=== PATIENT | female | born 1960 | race Caucasian/White ===

== ENCOUNTER 2017-08-10 01:13 | Observation (INO) | payer OTHER ==
[~2017-08-10 01:13] MED LIST: PANT20 PO; RANI150T PO; ZOFR4TAB3 SL
[2017-08-10] MEDS ORDERED: SODIUM CHLORIDE 0.9% FLUSH 10 ML FLUSH IV FLUSH PRN (02:30)
[2017-08-10 04:00] VITALS: PULSE 60
[2017-08-10 04:34] VITALS: BP 128/72; PULSE 56; RESP 18; TEMP 98.1; O2SAT 95
[2017-08-10 05:21] LABS: CREATINE KINASE 49 U/L (26-192)
[2017-08-10] MEDS ORDERED: PANTOPRAZOLE SOD 40 MG DELAYED RELEASE TAB PO SCH (06:00)
[2017-08-10 07:31] VITALS: PULSE 57
[2017-08-10] MEDS ORDERED: SODIUM CHLORIDE 0.9% FLUSH 10 ML FLUSH IV FLUSH SCH (09:00)
[2017-08-10 11:01] VITALS: BP 130/71; PULSE 61; RESP 20; TEMP 97.8; O2SAT 98
[2017-08-10] MEDS ORDERED: ONDANSETRON HCL 4 MG/2 ML VIAL IV PUSH PRN (12:00)
[2017-08-10] MEDS ORDERED: NITROGLYCERIN 0.4 MG SL 25 TABS/BTL SL PRN (12:00)
[2017-08-10] MEDS ORDERED: ACETAMINOPHEN 500 MG CPLT PO PRN (12:00)
[2017-08-10 12:06] LABS: CREATINE KINASE 40 U/L (26-192)
--- NOTE | 2017-08-10 13:26 | HHI.HP ---
HPI Primary Care Physician Surjit Steele MD Chief Complaint Chest pain History of Present Illness 56 year old female present to the ER for further evaluation of chest discomfort and epigastric squeezing. Onset yesterday morning upon awakening. Location substernal with radiation to right side of jaw. Duration 10 minutes, pain eased up in jaw first, a few minutes chest pressure subsided. Epigastric discomfort described as squeezing. No associated symptoms of nausea, vomiting, diaphoresis , or shortness of breath. Endorses similar pain in the past of both substernal pain accompanied with or without right sided jaw pain for a couple of years. . Reports while at work last night she developed substernal chest tightness, no radiation, duration one hour, no associated symptoms, no known precipitating or relieving factors. Endorses history of gastritis, GERD, and hiatal hernia. Review of Systems General: No fatigue,weakness, fever, chills, recent illness, or change in appetite. Has been in her general state of health. HEENT: No MONTIEL, no nasal congestion or drainage, no dysphasia. CV: As stated above. No current chest pain or pressure. RESP: No SOB, cough, or sputum production. GI: History of hiatal hernia, gastritis, and GERD. No nausea, vomiting, bowel changes, pain, or distention. Follows with a GI specialist. Has taken protonix and zantac on a regular basis in the past. : No dysuria EXT: No lower leg edema, no paraesthesias MS: No discomfort or change in ROM NEURO: No difficulty with balance, LOC, motor/sensory deficits PSYCH: No anxiety, depression, or situational stress. SKIN: No rashes, no concerning lesions Past Family Social History Allergies: Coded Allergies: penicillin G (Unverified Allergy, Severe, 06/18/17) cefepime (Unverified Allergy, Unknown, 06/18/17) ceftaroline fosamil (Unverified Allergy, Unknown, 06/18/17) cephalexin (Unverified Allergy, Unknown, 06/18/17) ciprofloxacin (Unverified Allergy, Unknown, 06/18/17) iodine (Unverified Allergy, Unknown, 06/18/17) pentazocine (Unverified Allergy, Unknown, 06/18/17) potassium iodide (Unverified Allergy, Unknown, 06/18/17) povidone-iodine (Unverified Allergy, Unknown, 06/18/17) sodium iodide (Unverified Allergy, Unknown, 06/18/17) sodium iodide (Unverified Allergy, Unknown, 06/18/17) Past Medical History Gastritis, hiatal hernia, GERD Past Surgical History Right breast lumpectomy, appendectomy Reported Medications Reported Ranitidine (Ranitidine HCl) 150 Mg Tab 150 Mg PO DAILY Protonix (Pantoprazole Sodium) 20 Mg Tab 20 Mg PO DAILY Active Ordered Medications Current Medications Medications (Trade) Dose Ordered Sig/Rudy Route Start Time Stop Time Status Last Admin (NS Flush) 2 ml BID IV FLUSH 08/10/17 09:00 08/10/17 11:30 (NS Flush) 2 ml UNSCH PRN IV FLUSH 08/10/17 02:30 (Protonix) 40 mg DAILY@0600 PO 08/10/17 06:00 08/10/17 07:00 (Tylenol) 500 mg Q4H PRN PO 08/10/17 12:00 (Zofran Inj) 4 mg Q6H PRN IV PUSH 08/10/17 12:00 (Nitrostat Sl) 0.4 mg Q5M PRN SL 08/10/17 12:00 (Aspirin) 325 mg DAILY PO 08/11/17 09:00 Family History Father from [place] age 48. Mother lived into her 90s. No siblings with early onset cardiovascular disease. Social History No known coronary artery disease, diabetes, hypertension, or hyperlipidemia. Lifelong smoker. Currently smokes Vapor cigarettes reporting 6mg nicotine with each cigarettes. Denies any alcohol. Works in [email or web address] for [employer]. Reports an active lifestyle. Past cardiac testing No recent stress testing. Remote cardiac catheterization at age 37 and reports completely normal exam. Physical Exam Vital Signs Vital Signs Date Time Temp Pulse Resp B/P (MAP) Pulse Ox O2 Delivery O2 Flow Rate FiO2 08/10/17 11:01 97.8 61 20 130/71 (90) 98 08/10/17 07:31 57 08/10/17 04:34 98.1 56 18 128/72 (90) 95 08/10/17 04:00 60 Physical Exam GENERAL: Alert WN, WD, NAD, pleasant, female HEAD: NC, AT EYES: Sclera clear, conjunctiva without injection ENT: Mucous membranes pink and moist NECK: Supple, no masses, trachea midline CV: RRR, without murmur, rub, gallop, no JVD, S1-S2 no S3-S4. No carotid bruits. Nontender chest wall with palpation. RESP: Clear lungs throughout bilateral, no crackles, wheeze, rhonchi, symmetrical chest rise, nonlabored, able to speak in full sentences ABD: Soft, NT, ND, no masses, positive bowel tones EXT: Pulses +24, no dependent edema MS: Normal tone 4 extremities, nontender, no obvious deformities, full range of motion NEURO: CN II through CN XII grossly intact, motor strength 5/5, gait WNL PSYCH: A+O 3, pleasant affect, appropriate speech, appropriate mood and affect , insight and judgment SKIN: Normal turgor, normal texture, no lesions, no rashes, even hair distribution Laboratory Laboratory Tests Test 08/10/17 04:20 08/10/17 10:43 Total Creatine Kinase 49 40 Troponin I LESS THAN 0.02 LESS THAN 0.02 Imaging Chest x-ray completed in [facility]-interpreted by radiologist as no acute findings. Course EKG NSR, normal axis, no st t segment changes Caprini VTE Risk Assessment Caprini VTE Risk Assessment: No/Low Risk (score <= 1) Caprini Risk Assessment Model Point Value = 1 Point Value = 2 Point Value = 3 Point Value = 5 Age 41-60 Minor surgery BMI > 25 kg/m2 Swollen legs Varicose veins or History of unexplained or recurrent spontaneous Oral contraceptives or hormone replacement Sepsis (< 1 month) Serious lung disease, including pneumonia (< 1 month) Abnormal pulmonary function Acute myocardial infarction Congestive heart failure (< 1 month) History of inflammatory bowel disease Medical patient at bed rest Age 61-74 Arthroscopic surgery Major open surgery (> 45 min) Laparoscopic surgery (> 45 min) Malignancy Confined to bed (> 72 hours) Immobilizing plaster cast Central venous access Age >= 75 History of VTE Family history of VTE Factor V Leiden Prothrombin [id number] Lupus anticoagulant Anticardiolipin antibodies Elevated serum homocysteine Heparin-induced thrombocytopenia Other congenital or acquired thrombophilia Stroke (< 1 month) Elective arthroplasty Hip, pelvis, or leg fracture Acute spinal cord injury (< 1 month) Prophylaxis Regimen Total Risk Factor Score Risk Level Prophylaxis Regimen 0-1 Low Early ambulation 2 Moderate Order ONE of the following: *Sequential Compression Device (SCD) *Heparin 5000 units SQ BID 3-4 Higher Order ONE of the following medications: *Heparin 5000 units SQ TID *Enoxaparin/Lovenox 40 mg SQ daily (WT < 150 kg, CrCl > 30 mL/min) *Enoxaparin/Lovenox 30 mg SQ daily (WT < 150 kg, CrCl > 10-29 mL/min) *Enoxaparin/Lovenox 30 mg SQ BID (WT < 150 kg, CrCl > 30 mL/min) AND/OR *Sequential Compression Device (SCD) 5 or more Highest Order ONE of the following medications: *Heparin 5000 units SQ TID (Preferred with Epidurals) *Enoxaparin/Lovenox 40 mg SQ daily (WT < 150 kg, CrCl > 30 mL/min) *Enoxaparin/Lovenox 30 mg SQ daily (WT < 150 kg, CrCl > 10-29 mL/min) *Enoxaparin/Lovenox 30 mg SQ BID (WT < 150 kg, CrCl > 30 mL/min) AND *Sequential Compression Device (SCD) Assessment and Plan Assessment and Plan #1 Atypical chest pain-admitted to chest pain center. Ruled out with 3 sets of cardiac enzymes, EKGs, and monitored on telemetry overnight. Seen and evaluated by Dr. Kris Riley. Discomfort does not appear related to cardiac. Will proceed with exercise stress testing due to cardiovascular risks. If unremarkable, plans to discharge home this afternoon. Patient agreeable to plan of care. #2 GERD-discomfort most likely related to acid reflux issues, encouraged to start using over the counter Zantac on a daily basis with as needed Tums. Instructed to make a follow appointment with her GI specialist. #3 Tobacco use-strongly encouraged and discussed smoking cessation of all types , including vaporizing cigarettes. Instructed to quit using all types of nicotine. Elenita Srinivasan Aug 10, 2017 13:26
--- NOTE | 2017-08-10 14:24 | HHI.DCPOC ---
Discharge Care Plan Diagnosis: (1) Atypical chest pain (2) GERD (gastroesophageal reflux disease) Goals to Promote Your Health * To prevent worsening of your condition and complications * To maintain your health at the optimal level Directions to Meet Your Goals Take your medications as prescribed Follow your dietary instruction Follow activity as directed Keep your appointments as scheduled Take your immunizations and boosters as scheduled If your symptoms worsen call your PCP, if no PCP go to Urgent Care Center or Emergency Room Smoking is Dangerous to Your Health. Avoid second hand smoke Call the 24-hour hour crisis hotline for domestic abuse at Elenita Srinivasan Aug 10, 2017 14:24
[2017-08-11] MEDS ORDERED: ASPIRIN 325 MG TAB PO SCH (09:00)
--- NOTE | 2017-08-11 12:21 | TR ---
Date Performed: 08/10/2017 Time Performed: 14:06:44 DOCTOR: Kris Riley DRUG LIST: CLINICAL HISTORY: CHEST PAIN REASON FOR TEST: Chest pain REASON FOR ENDING: OBSERVATION: CONCLUSION: Surjit protocol completed. Stopped sec to reaching target heart rate and leg fatigue. Maximum EJ=429 Target HR Achieved=85.0% Maximum DK=471/92 Total Exercise Time=7:03. No reprod chest pain. No ectopy. No St t segment changes to sugg ischemia. Good exercise tolerance. Normal bp response. Recovery quick and unremarkable. COMMENTS: Conclusion: Normal treadmill exercise. No evidence of ischemia.
--- NOTE | 2017-08-11 12:29 | EKG ---
Date Performed: 08/10/2017 Time Performed: 12:11:30 PTAGE: 56 years EKG: SINUS BRADYCARDIA BORDERLINE ECG INTERPRETATION BASED ON A DEFAULT AGE OF 40 YEARS Since PREVIOUS TRACING , no significant change noted DOCTOR: Kris Riley Interpretating Date/Time 08/11/2017 12:27:50
[2017-08-22] MEDS ORDERED: DICY10CA12 PO (05:37)
[2017-08-22] MEDS ORDERED: METH40TA PO (05:37)
== END 2017-08-10 15:31 | disposition home or self-care (01) ==
LOC: NEDDLT 01:13 → UNDOADMOB 01:17 → NEPFCDU 01:17
DX: R07.89 Other chest pain (principal); K21.9 Gastro-esophageal reflux disease without esophagitis; R82.99 Other abnormal findings in urine; K44.9 Diaphragmatic hernia without obstruction or gangrene; F17.200 Nicotine dependence, unspecified, uncomplicated
CPT/HCPCS: 71010; 80053; 80307; 81001; 82550; 83735; 84484; 85025; 85610; 85730; 87086; 93005; 93017; 99285; G0378

== ENCOUNTER 2017-08-22 06:05 | Observation (INO) | payer OTHER ==
[~2017-08-22 06:05] MED LIST changes: +DICY10CA12 PO; +METH40TA PO; +NALOXONE HCL 0.4 MG/ML AMP IV PUSH PRN; +SODIUM CHLORIDE 0.9% FLUSH 10 ML FLUSH IV FLUSH PRN; -ZOFR4TAB3 SL
[2017-08-22 06:24] VITALS: BP 130/78; PULSE 70; RESP 12; TEMP 98.9; O2SAT 95
[2017-08-22 08:15] VITALS: BP 125/70; PULSE 63; RESP 18; TEMP 98.2; O2SAT 93
--- NOTE | 2017-08-22 08:28 | PD.CONS ---
HPI History of Present Illness This is a 56 year old female who presented to the emergency room last night for evaluation of chest pain with associated shortness of breath. She had similar symptoms last week and was transferred to [facility], where she underwent evaluation with a stress test and this was normal without any evidence of ischemia. She reports that she has been having intermittent "Gastrointestinal attacks" for several years. She was evaluated by Dr. Louis about a year ago with EGD/Colonoscopy. She does not recall the findings. She reports this latest attack began suddenly last night. She went to [employer] for lunch around 1pm and had a soup and some glazed ribs. Last night, she started getting a tight squeezing substernal pain with associated shortness of breath. Shortly after the chest pain began, she started having a pressure like pain in her epigastric area without radiation and associated nausea and vomiting with nonbloody emesis. There are no aggravating or alleviating symptoms. She does have GERD and takes Protonix at home, but still has occasional breakthrough symptoms. She has associated bloating, but denies any constipation, diarrhea, melena, or hematochezia. She does not take any advil. She does not drink ETOH. She denies any history of gallbladder problems. (Sharmaine Menon) PFSH Past Medical History Gastritis Hiatal hernia GERD Hx IVDA Past Surgical History Right breast lumpectomy Appendectomy EGD/Colonoscopy (Sharmaine Menon) Coded Allergies: penicillin G (Verified Allergy, Severe, 08/21/17) cefepime (Verified Allergy, Unknown, 08/21/17) ceftaroline fosamil (Verified Allergy, Unknown, 08/21/17) cephalexin (Verified Allergy, Unknown, 08/21/17) ciprofloxacin (Verified Allergy, Unknown, 08/21/17) iodine (Verified Allergy, Unknown, 08/21/17) pentazocine (Verified Allergy, Unknown, 08/21/17) potassium iodide (Verified Allergy, Unknown, 08/21/17) povidone-iodine (Verified Allergy, Unknown, 08/21/17) sodium iodide (Verified Allergy, Unknown, 08/21/17) sodium iodide (Verified Allergy, Unknown, 08/21/17) Medications Allergies Coded Allergies Type Severity Reaction Last Updated Verified penicillin G Allergy Severe 08/21/17 Yes cefepime Allergy Unknown 08/21/17 Yes ceftaroline fosamil Allergy Unknown 08/21/17 Yes cephalexin Allergy Unknown 08/21/17 Yes ciprofloxacin Allergy Unknown 08/21/17 Yes iodine Allergy Unknown 08/21/17 Yes pentazocine Allergy Unknown 08/21/17 Yes potassium iodide Allergy Unknown 08/21/17 Yes povidone-iodine Allergy Unknown 08/21/17 Yes sodium iodide Allergy Unknown 08/21/17 Yes sodium iodide Allergy Unknown 08/21/17 Yes Active Scripts Medications Dose Route/Sig Max Daily Dose Days Date Category Dicyclomine (Dicyclomine HCl) 10 Mg Cap 10 Mg PO QID 08/22/17 Reported Methadone (Methadone HCl) 40 Mg Tab 180 Mg PO DAILY 08/22/17 Reported Ranitidine (Ranitidine HCl) 150 Mg Tab 150 Mg PO DAILY 08/09/17 Reported Protonix (Pantoprazole Sodium) 20 Mg Tab 20 Mg PO DAILY 03/14/17 Reported Family History Father at age 48 from [place] Social History Uses nicotine vape No ETOH No illicit drug use. Does have hx of heroin use 20 years ago. Currently on methadone (Sharmaine Menon) Review of Systems Constitutional: COMPLAINS OF: Fatigue, DENIES: Fever, Chills Respiratory: COMPLAINS OF: Shortness of breath, DENIES: Cough Cardiovascular: COMPLAINS OF: Chest pain Gastrointestinal: COMPLAINS OF: Abdominal pain, Nausea, Vomiting, Swelling of Abdomen, Heartburn, DENIES: Black stools, Bloody stools, Constipation, Diarrhea Musculoskeletal: DENIES: Back pain Integumentary: DENIES: Jaundice Hematologic/lymphatic: DENIES: Bruising Immunologic/allergic: DENIES: Eczema Neurologic: DENIES: Headache Psychiatric: DENIES: Confusion (Sharmaine Menon) GI Exam Vitals I&O Vital Signs Date Time Temp Pulse Resp B/P (MAP) Pulse Ox O2 Delivery O2 Flow Rate FiO2 08/22/17 06:24 98.9 70 12 130/78 (95) 95 Physical Examination HEENT: Normocephalic; atraumatic; no jaundice. CHEST: CTA CARDIAC: RRR ABDOMEN: Soft, nondistended, epigastric discomfort; no hepatosplenomegaly; bowel sounds are present in all four quadrants. EXTREMITIES: No clubbing, cyanosis, or edema. SKIN: Normal; no rash; no jaundice. COMMUNITY ENGAGEMENT LEADER: No focal deficits; alert and oriented times three. (Sharmaine Menon) Assessment and Plan Plan ASSESSMENT: - Abdominal pain, N/V. Pt with hx of GERD and recurrent chest pain/epigastric pain- squeezing/pressure like pain. She has had multiple attacks in the past. She had soup and glazed ribs at [employer] at 1pm on 08/21, then started having chest pressure followed by epigastric pain around 7pm. She had an EGD/ Colonoscopy about a year ago with Dr. Louis, states she had gastritis, gerd, hh. Denies any hx of GB issues. Her LFTs have not been checked during this admission. Lipase was 288. NPO. PPI. Will plan for EGD today. Check LFTs, Lipase. RUQ US to r/o cholecystitis. - Chest pain. S/P recent stress test and this was normal without any evidence of ischemia (08/10/17). - GERD, HH. PPI PLAN: - Plan for egd today - Obtain consents - NPO - Protonix - LFT, Lipase level - RUQ US - Supportive care - Further recommendations to follow based on results of above - Pt seen and examined by Dr. Lester and myself and this note is written on his behalf (Sharmaine Menon) Physician Comments Patient seen and examined. Agree with above. Continue with current supportive care Monitor labs Plan for an EGD next (Antonio Lester MD) Sharmaine Menon Aug 22, 2017 08:28 Antonio Lester MD Aug 22, 2017 15:57
[2017-08-22] MEDS ORDERED: SODIUM CHLORIDE 0.9% FLUSH 10 ML FLUSH IV FLUSH SCH (09:00)
[2017-08-22] MEDS ORDERED: PANTOPRAZOLE SOD 40 MG DELAYED RELEASE TAB PO SCH (09:00)
--- NOTE | 2017-08-22 10:06 | RADRPT ---
EXAM DATE/TIME: 08/22/2017 09:36 [facility] COMPARISON: No previous studies available for comparison. INDICATIONS : Nausea and vomiting. MEDICAL HISTORY : Gastroesophageal reflux disease. Gastritis. SURGICAL HISTORY : Appendectomy. ENCOUNTER: Initial ACUITY: 1 day PAIN SCORE: 0/10 LOCATION: Right upper quadrant MEASUREMENTS: LIVER: 14.5 cm length COMMON DUCT: 5 mm RIGHT KIDNEY: 11.4 x 4.1 x 5.7 cm FINDINGS: LIVER: There is a mild increased echogenicity in the liver parenchyma. No dilated biliary ducts. The portal system is patent. There is no evidence of ascites. COMMON DUCT: No intraluminal mass or stone visualized. GALLBLADDER: Contains no stones, demonstrates no wall thickening or pericholecystic fluid. PANCREAS: The visualized portions are within normal limits. RIGHT KIDNEY: No evidence of hydronephrosis, stone, or mass. CONCLUSION: 1. Mild fatty infiltration of the liver. 2. No evidence of gallstones or biliary tract obstruction. Srinivas Hodges MD on August 22, 2017 at 10:04 Board Certified Radiologist. This report was verified electronically.
[2017-08-22 10:58] LABS: AUTOMATED NEUTROPHIL # 5.1 TH/MM3 (1.8-7.7); BASOPHIL % 0.7 % (0.0-2.0); EOSINOPHIL % 0.3 % (0.0-4.0); HEMATOCRIT 41.5 % (35.0-46.0); HEMO FLAGS DIFF FINAL; LYMPH % 18.6 % (9.0-44.0); LYMPHOCYTE # 1.2 TH/MM3 (1.0-4.8); MEAN CELL VOLUME 89.3 FL (80.0-100.0); MEAN CORPUSCULAR HEMOGLOBIN 29.9 PG (27.0-34.0); MEAN CORPUSCULAR HGB CONC 33.5 % (32.0-36.0); MONO % 4.8 % (0.0-8.0); NEUT % 75.6 % (16.0-70.0); PLATELET COUNT 144 TH/MM3 (150-450); RED BLOOD COUNT 4.65 MIL/MM3 (4.00-5.30); RED CELL DISTRIBUTION WIDTH 12.9 % (11.6-17.2); WHITE BLOOD COUNT 6.7 TH/MM3 (4.0-11.0)
[2017-08-22] MEDS ORDERED: METHADONE HCL 10 MG TAB PO SCH (11:30)
[2017-08-22 11:33] LABS: ANION GAP 5 MEQ/L (5-15); BICARBONATE 28.8 MEQ/L (21.0-32.0); BLOOD UREA NITROGEN 12 MG/DL (7-18); CHLORIDE 106 MEQ/L (98-107); GLOMERULAR FILTRATION RATE 79 ML/MIN (>89); SODIUM (NA) 140 MEQ/L (136-145)
[2017-08-22 11:39] LABS: CREATINE KINASE 73 U/L (26-192)
[2017-08-22] MEDS ORDERED: D5-1/2 NS + KCL 20 MEQ INJ 1,000 ML IV SCH (11:45)
--- NOTE | 2017-08-22 11:49 | HHI.HP ---
[facility] Unknown Admission Diagnosis Diagnoses: Travel History International Travel<30 Days: No Contact w/Intl Traveler <30 Da: No Traveled to Known Affected Are: No History of Present Illness 56-year-old female with a history of GERD, narcotic dependence, who presents with acute onset colicky epigastric pain, substernal chest pressure, as well as nausea, with multiple episodes of nonbloody emesis starting around 7 PM last night. She denies any other symptoms. Denies any fevers, chills, diarrhea, constipation, lightheadedness, dizziness. Patient had recent stress test which was negative. Review of Systems Except as stated in HPI: all other systems reviewed are Neg Past Family Social History Past Medical History Gastritis Hiatal hernia GERD Hx IVDA Past Surgical History Right breast lumpectomy Appendectomy EGD/Colonoscopy Reported Medications Reported Meds & Active Scripts Active Reported Ranitidine (Ranitidine HCl) 150 Mg Tab 150 Mg PO DAILY Protonix (Pantoprazole Sodium) 20 Mg Tab 20 Mg PO DAILY Methadone 180 mg by mouth once daily Allergies: Coded Allergies: penicillin G (Verified Allergy, Severe, 08/21/17) cefepime (Verified Allergy, Unknown, 08/21/17) ceftaroline fosamil (Verified Allergy, Unknown, 08/21/17) cephalexin (Verified Allergy, Unknown, 08/21/17) ciprofloxacin (Verified Allergy, Unknown, 08/21/17) iodine (Verified Allergy, Unknown, 08/21/17) pentazocine (Verified Allergy, Unknown, 08/21/17) potassium iodide (Verified Allergy, Unknown, 08/21/17) povidone-iodine (Verified Allergy, Unknown, 08/21/17) sodium iodide (Verified Allergy, Unknown, 08/21/17) sodium iodide (Verified Allergy, Unknown, 08/21/17) Family History Father at age 48 from [place] Social History Uses nicotine vape No ETOH No illicit drug use. Does have hx of heroin use 20 years ago. Currently on methadone Physical Exam Vital Signs Vital Signs Date Time Temp Pulse Resp B/P (MAP) Pulse Ox O2 Delivery O2 Flow Rate FiO2 08/22/17 08:15 98.2 63 18 125/70 (88) 93 08/22/17 06:24 98.9 70 12 130/78 (95) 95 Physical Exam GENERAL: This is a well-nourished, well-developed patient, appears uncomfortable. Alert and oriented 3. SKIN: No rashes, ecchymoses or lesions. Cool and dry. HEAD: Atraumatic. Normocephalic. No temporal or scalp tenderness. EYES: Pupils equal round and reactive. Extraocular motions intact. No scleral icterus. No injection or drainage. ENT: Nose without bleeding, purulent drainage or septal hematoma. Throat without erythema, tonsillar hypertrophy or exudate. Uvula midline. Airway patent. NECK: Trachea midline. No JVD or lymphadenopathy. Supple, nontender, no meningeal signs. CARDIOVASCULAR: Regular rate and rhythm without murmurs, gallops, or rubs. RESPIRATORY: Clear to auscultation. Breath sounds equal bilaterally. No wheezes , rales, or rhonchi. GASTROINTESTINAL: Abdomen soft, non-tender, nondistended. No hepato-splenomegaly , or palpable masses. No guarding. MUSCULOSKELETAL: Extremities without clubbing, cyanosis, or edema. No joint tenderness, effusion, or edema noted. No calf tenderness. Negative Homans sign bilaterally. NEUROLOGICAL: Awake and alert. Cranial nerves II through XII intact. Motor and sensory grossly within normal limits. Five out of 5 muscle strength in all muscle groups. Normal speech. Laboratory Laboratory Tests Test 08/22/17 10:29 White Blood Count 6.7 Red Blood Count 4.65 Hemoglobin 13.9 Hematocrit 41.5 Mean Corpuscular Volume 89.3 Mean Corpuscular Hemoglobin 29.9 Mean Corpuscular Hemoglobin Concent 33.5 Red Cell Distribution Width 12.9 Platelet Count 144 Mean Platelet Volume 9.2 Neutrophils (%) (Auto) 75.6 Lymphocytes (%) (Auto) 18.6 Monocytes (%) (Auto) 4.8 Eosinophils (%) (Auto) 0.3 Basophils (%) (Auto) 0.7 Neutrophils # (Auto) 5.1 Lymphocytes # (Auto) 1.2 Monocytes # (Auto) 0.3 Eosinophils # (Auto) 0.0 Basophils # (Auto) 0.0 CBC Comment DIFF FINAL Differential Comment Blood Urea Nitrogen 12 Creatinine 0.75 Random Glucose 104 Calcium Level 9.0 Sodium Level 140 Potassium Level 4.0 Chloride Level 106 Carbon Dioxide Level 28.8 Anion Gap 5 Estimat Glomerular Filtration Rate 79 Total Creatine Kinase 73 Troponin I LESS THAN 0.02 Result Diagram: 08/22/17 1029 Imaging Last Impressions Gall Bladder Ultrasound 08/22/17 0000 Signed Impressions: Service Date/Time: August 09:36 - CONCLUSION: 1. Mild fatty infiltration of the liver. 2. No evidence of gallstones or biliary tract obstruction. MD Maria M Crespo VTE Risk Assessment Caprinrickey VTE Risk Assessment: No/Low Risk (score <= 1) Caprini Risk Assessment Model Point Value = 1 Point Value = 2 Point Value = 3 Point Value = 5 Age 41-60 Minor surgery BMI > 25 kg/m2 Swollen legs Varicose veins or History of unexplained or recurrent spontaneous Oral contraceptives or hormone replacement Sepsis (< 1 month) Serious lung disease, including pneumonia (< 1 month) Abnormal pulmonary function Acute myocardial infarction Congestive heart failure (< 1 month) History of inflammatory bowel disease Medical patient at bed rest Age 61-74 Arthroscopic surgery Major open surgery (> 45 min) Laparoscopic surgery (> 45 min) Malignancy Confined to bed (> 72 hours) Immobilizing plaster cast Central venous access Age >= 75 History of VTE Family history of VTE Factor V Leiden Prothrombin [id number] Lupus anticoagulant Anticardiolipin antibodies Elevated serum homocysteine Heparin-induced thrombocytopenia Other congenital or acquired thrombophilia Stroke (< 1 month) Elective arthroplasty Hip, pelvis, or leg fracture Acute spinal cord injury (< 1 month) Prophylaxis Regimen Total Risk Factor Score Risk Level Prophylaxis Regimen 0-1 Low Early ambulation 2 Moderate Order ONE of the following: *Sequential Compression Device (SCD) *Heparin 5000 units SQ BID 3-4 Higher Order ONE of the following medications: *Heparin 5000 units SQ TID *Enoxaparin/Lovenox 40 mg SQ daily (WT < 150 kg, CrCl > 30 mL/min) *Enoxaparin/Lovenox 30 mg SQ daily (WT < 150 kg, CrCl > 10-29 mL/min) *Enoxaparin/Lovenox 30 mg SQ BID (WT < 150 kg, CrCl > 30 mL/min) AND/OR *Sequential Compression Device (SCD) 5 or more Highest Order ONE of the following medications: *Heparin 5000 units SQ TID (Preferred with Epidurals) *Enoxaparin/Lovenox 40 mg SQ daily (WT < 150 kg, CrCl > 30 mL/min) *Enoxaparin/Lovenox 30 mg SQ daily (WT < 150 kg, CrCl > 10-29 mL/min) *Enoxaparin/Lovenox 30 mg SQ BID (WT < 150 kg, CrCl > 30 mL/min) AND *Sequential Compression Device (SCD) Assessment and Plan Assessment and Plan ///Abdominal pain //Nausea and vomiting. //History of GERD -Basic labs pending.. -Vitals reviewed and blood pressure, heart rate stable on admission. - Antiemetics as necessary. -D5 1 half normal saline -Liver ultrasound with no evidence of cholecystitis. However does show fatty liver infiltration. Likely an [place] -ordered LFTs and lipase. -EGD planned per gastroenterology. Appreciate assistance. //Chest pain -Troponin negative. Patient has recent stress test which is negative as well. This is secondary to abdominal pain, nausea vomiting = 08/22. We'll order single repeat troponin and EKG, which with timing of onset will rule out chest pain. //Narcotic dependence. -Continue home methadone. //From cytopenia. Platelets 144. No signs of bleeding. This likely secondary to chronic liver issues. Labs pending. //Prophylaxis. SCDs. Discussed Condition With Patient, nurse Barak Lynn MD Aug 22, 2017 11:49
[2017-08-22 12:00] VITALS: BP 138/74; PULSE 54; RESP 18; TEMP 98; O2SAT 98
[2017-08-22] MEDS ORDERED: PROPOFOL 200 MG/20 ML AMP IV ONE (14:15)
[2017-08-22] MEDS ORDERED: LIDOCAINE HCL 1% PF 5 ML AMPULE OTHER ONE (14:15)
[2017-08-22] MEDS ORDERED: PROPOFOL 200 MG/20 ML AMP ONE (14:18)
[2017-08-22] MEDS ORDERED: LIDOCAINE HCL 1% PF 5 ML AMPULE ONE (14:19)
[2017-08-22] MEDS ORDERED: GLYCOPYRROLATE 1 MG/5 ML SYRINGE ONE (14:19)
[2017-08-22] MEDS ORDERED: METOPROLOL TARTRATE 25 MG TAB PO PRN (14:30)
[2017-08-22] MEDS ORDERED: INSULIN HUMAN REGULAR 1,000 UNITS/10 ML VIAL SQ PRN (14:30)
[2017-08-22] MEDS ORDERED: CHLORHEXIDINE GLUCONATE 2 % 1 PACK (2 CLOTHS) TOPICAL PRN (14:30)
[2017-08-22] MEDS ORDERED: SODIUM CHLORID 0.9% 500 ML IV PRN (14:30)
[2017-08-22] MEDS ORDERED: LACTATED RINGER'S 1000 ML IV PRN (14:30)
--- NOTE | 2017-08-22 16:00 | PD.PROCEDR ---
GI Procedure REFERRING PHYSICIAN Dr. Lynn PROCEDURE PERFORMED EGD with biopsies INDICATION FOR PROCEDURE Abdominal pain, nausea and vomiting, chest pain, reflux PROCEDURE: The procedure, risks and benefits were discussed with Ms. Chang and informed consent was obtained. Anesthesia sedated her with Diprivan. She was placed in the left lateral decubitus position. EGD: The Pentax videoscope was introduced through the oropharynx and advanced to the second portion of the duodenum under direct visualization. Retroflexion was performed in the stomach. FINDINGS: Esophagus this appeared to be unremarkable and within normal limits Stomach there was a large hiatal hernia the patient was noted to have Deandre ulcers these were superficial with no visible vessel and no active bleeding there was significant erythema surrounding these ulcers is also patchy erythema in the antrum biopsies were taken from the Deandre ulcers in the antrum for further evaluation The duodenum this was normal ESTIMATED BLOOD LOSS: None SPECIMENS REMOVED: Antral and gastric body biopsies COMPLICATIONS: None IMPRESSION: Hiatal hernia Deandre ulcers Gastritis PLAN: Await biopsies Continue with PPI twice a day EGD in 2 months Antonio Lester MD Aug 22, 2017 16:00
[2017-08-22 16:10] VITALS: BP 123/76; PULSE 57; RESP 16; TEMP 98.3; O2SAT 97
[2017-08-22] MEDS ORDERED: PANT40TA3 PO (17:13)
[2017-08-22 18:20] LABS: TOTAL BILIRUBIN ADULT 0.6 MG/DL (0.2-1.0)
[2017-08-22 18:26] LABS: INDIRECT BILIRUBIN 0.5 MG/DL (0.0-0.8)
--- NOTE | 2017-08-22 21:43 | EKG ---
Date Performed: 08/22/2017 Time Performed: 06:30:57 PTAGE: 56 years EKG: Sinus rhythm NORMAL ECG PREVIOUS TRACING : 08/10/2017 12.11 Compared to prior tracing no significant change DOCTOR: Jake Verma Interpretating Date/Time 08/22/2017 21:41:46
--- NOTE | 2017-08-23 22:03 | EKG ---
Date Performed: 08/22/2017 Time Performed: 11:25:52 PTAGE: 56 years EKG: SINUS BRADYCARDIA POSSIBLE LEFT ATRIAL ENLARGEMENT BORDERLINE ECG PREVIOUS TRACING : 08/22/2017 06.30 Compared to prior tracing no significant change DOCTOR: Carlos Hanson Interpretating Date/Time 08/23/2017 21:43:44
== END 2017-08-22 22:30 | disposition home or self-care (01) ==
LOC: NEDDLT 06:05 → NEPGCP 06:15
PROVIDERS: ADMIT Hospitalist; ATTEND Hospitalist
DX: K29.70 Gastritis, unspecified, without bleeding (principal); K25.9 Gastric ulcer, unspecified as acute or chronic, without hemorrhage or perforation; K44.9 Diaphragmatic hernia without obstruction or gangrene; K21.9 Gastro-esophageal reflux disease without esophagitis; R07.9 Chest pain, unspecified; F11.20 Opioid dependence, uncomplicated; D75.9 Disease of blood and blood-forming organs, unspecified
CPT/HCPCS: 00740; 43239; 76705; 80048; 80076; 82550; 83690; 84484; 85025; 88305; 88312; 93005; 96365; 99285; G0378; J3480; J7120